=== PATIENT | female | born 2000 | race Two or more races ===

== ENCOUNTER 2024-06-21 10:28 | Emergency (ER) | payer MEDICAID ==
[~2024-06-21] VITALS: Ht 152.4 cm; Wt 62.6 kg
[2024-06-21 10:35] VITALS: TEMP 97.8
[2024-06-21] MEDS ORDERED: IBUP-1955 PO (11:46)
[2024-06-21] MEDS: BACI/NEOM/POLY B OINT PKT 1 UDPKT PACKET TP ONE (12:00)
[2024-06-21] MEDS: TDAP [DIPH/PERTUSSIS/TET] 0.5 ML VIAL IM ONE (12:26)
[2024-06-21] MEDS ORDERED: CYCL5TAB PO (12:42)
[2024-06-21] MEDS ORDERED: HYDR-4303 PO (12:42)
[2024-06-21 12:55] VITALS: BP 135/85; O2SAT 99
== END 2024-06-21 12:50 | disposition home or self-care (01) ==
LOC: ER 10:43
DX: S09.90XA Unspecified injury of head, initial encounter (principal); S02.2XXB Fracture of nasal bones, initial encounter for open fracture; R04.0 Epistaxis; Y04.0XXA Assault by unarmed brawl or fight, initial encounter; Y93.89 Activity, other specified; Y92.89 Other specified places as the place of occurrence of the external cause; Y99.8 Other external cause status
CPT/HCPCS: 12001; 70450; 70486; 71045; 90471; 90715; 99285; A6403